=== PATIENT | female | born 1995 | race African-American/Black ===

== ENCOUNTER 2022-07-15 09:23 | Emergency (ER) | payer OTHER, BC ==
[2022-07-15 09:37] VITALS: BP 121/81; PULSE 86; RESP 20; TEMP 98.4; BMI 42.5
[2022-07-15] MEDS ORDERED: ACETAMINOPHEN 500 MG TABLET (FP) PO ONE (11:18)
[2022-07-15] MEDS ORDERED: ACETAMINOPHEN 325 MG TABLET (FP) ONE (11:33)
== END 2022-07-15 15:42 | disposition home or self-care (01) ==
LOC: JER 09:23
DX: M54.50 Low back pain, unspecified (principal); V49.40XA Driver injured in collision with unspecified motor vehicles in traffic accident, initial encounter
CPT/HCPCS: 72125-TC; 72128-TC; 72131-TC; 99284-25

== ENCOUNTER 2022-08-09 18:29 | Emergency (ER) | payer BC, OTHER ==
[2022-08-09 18:34] VITALS: BP 123/76; PULSE 101; RESP 18; TEMP 98.5; BMI 38.0
[2022-08-09] MEDS ORDERED: KETOROLAC TROMETHAMINE 30 MG/1 ML VIAL IM ONE (18:59)
[2022-08-09] MEDS ORDERED: ACETAMINOPHEN 500 MG TABLET (FP) PO ONE (18:59)
[2022-08-09] MEDS ORDERED: KETOROLAC TROMETHAMINE 30 MG/1 ML VIAL ONE (19:01)
[2022-08-09] MEDS ORDERED: ACETAMINOPHEN 325 MG TABLET (FP) ONE (19:01)
== END 2022-08-09 19:50 | disposition home or self-care (01) ==
LOC: JERFT 18:29
PROC: 3E023GC Introduction of Other Therapeutic Substance into Muscle, Percutaneous Approach (ICD-10-PCS; principal; 2022-08-09)
DX: M25.531 Pain in right wrist (principal)
CPT/HCPCS: 73090-TC-RT-FY; 73110-TC-RT-FY; 73130-TC-RT-FY; 99284-25